=== PATIENT | male | born 1960 | race Caucasian/White ===

== ENCOUNTER 2025-08-12 13:50 | Outpatient (OUT) | payer OTHER, SELFPAY ==
--- OUTSIDE RECORDS SUMMARY | 2025-07-29 19:54 | XMS_ITS | Continuity of Care Document ---
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 Name Role Phone Denisha Leland LEHMAN Primary Care Provider Leland Denny DO Attending Provider [phone] [facility] Care Teams Patient Care Team Team Status: Active Member Role/Relationship Status Dates Leland Denny DO Primary Care Provider Active Visit Care Team Team Status: Inactive Member Role/Relationship Status Dates Leland Denny DO Primary Care Provider Active Sta rt: June 12, 2025 End: June 12Latricia Baumann ProviderActiveStart: June 12, 2025 End: June 12, 2025 Visit Care Team Team Status: Inactive Member Role/Relationship Status Dates Leland Denny DO Primary Care Provider Active Sta rt: July 02, 2025 End: July 02Latricia Baumann ProviderActiveStart: July 02, 2025 End: July 02, 2025 Visit Care Team Team Status: Inactive Member Role/Relationship Status Dates Leland Denny DO Primary Care Provider Active Sta rt: July 02, 2025 End: July 02Latricia Baumann ProviderActiveStart: July 02, 2025 End: July 02, 2025 Visit Care Team Team Status: Inactive Member Role/Relationship Status Dates Leland Denny DO Primary Care Provider Active Sta rt: July 29, 2025 End: July 29CAROLA Spaulding-BCAttending ProviderActiveStart: July 29, 2025 End: July 29, 2025 Chief Complaint and Reason for Visit Chief Complaint Admit Date 12.5 E78.5 June 12, 2025 7:15am wellness July 02, 2025 8:20am r97.20 n28.9 July 02, 2025 9:30am R97.20 July 29, 2025 8 :25am Reason for Visit Admit Date Abnormal kidney function July 02, 2025 8:20am Elevated PSA July 02, 2025 8:20am Hyperlipidemia July 02, 2025 8:20am Hypertension July 02, 2025 8:20am Wellness examination July 02 8:20am Allergies, Adverse Reactions, Alerts Allergen Type Severity Reaction Last Updated Verified Status No Known Allergies Allergy Unknown July 02, 2025 8:43amYesActive Social History Smoking Status Status Start Date End Date Date of Observa tion Never smoked tobacco (finding) November 07, 2023 12:38pm Observation Status Observation Response Date of Response Legal Sex [facility] (finding) [facility] [place] [facility] Family History Relationship Condition Age at Onset Recorded Date/T adrián Not Specified No pertinent family history Unknown maternal grandfatherDeceasedUnknownmaternal grandmotherDeceasedUnknownpaternal grandfatherDeceasedUnknownpaternal grandmotherDeceasedUnknownmotherDeceased UnknownfatherDiabetes mellitusUnknownDeceasedUnknown Problems Active Problems Problem Diagnosis/Recorded Date Onset Date Stat us Elevated PSA July 02, 2025 9:25am Unknown Active Screening for prostate cancer May 14, 2024 10:33am Unknown Active Wellness examination July 02, 2025 8:43am Unkno wn Active Hyperlipidemia May 14, 2024 10:33am Unknown A ctive Screening for colorectal cancer May 02, 2022 7:02am Unknown Active Abnormal kidney function June 28, 2024 11:26am Unknown Active Hypertension April 29, 2022 12:32pm Unknown Acti ve Vitamin D deficiency June 28, 2024 11:26am Unkn own Active Medications Medication Status Dose Units Route Directions Qty Days Refills S tart Date Stop Date End Date Reason(s) Instructions Adherence Olmesartan 20 mg tablet Discontinued 20 MG PO .CO MPLEX 90 1September 2023 2:40pmSeptember 2024 9:27amHypertension Essential (primary) hypertension1 tablet three times per weekLosartan 25 mg lavxrkHkjkwbuzfvyj95CEFMWzakrYllp 2021 12:00amSeptember 2023 11:27am Rosuvastatin 10 mg mtkjseViwhjqunakhq47FGMMAyxrrZlcp 2021 12:00amSeptember 2023 11:27amOlmesartan 20 mg xcgmglBbwmzjxyzdmg05RCTNPacqbcjxb 2023 12:00amSeptember 2023 9:51amRosuvastatin 20 mg tnvhojAmpcfubulsfm42YCGB DailySeptember 2023 12:00amSeptember 2023 9:51amOlmesartan 20 mg jpjzoeZrmzzdiamlsd63KMRMTszlh892Qrhrvwfro 2023 9:51amSeptember 2023 2:41pmRosuvastatin 20 mg doqtkyHgiwwsdfjsql12WIURFrsec112Fdqxdnvlt 2023 9:51amSeptember 2024 9:27amOlmesartan 20 mg iogtctSsneaj45PEWY.BQYAJDB650 July 02, 2025 9:27amHypertension Essential (primary) hypertension1 tablet three times per weekUnknownRosuvastatin 20 mg yoklbdMklrjj24HKBMWfaiu163Lbevjwkcs 2024 9:27amUnknown Immunizations Immunization Event Date Not Given Reason Dose Number Motion 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 Lot Number Reason(s) Given Vaccine Information Statement (VIS) Detail Administration Location COVID-19 mRNA, Comirnaty ([facility]) November 11, 2020 COVID-19 mRNA, Comirnaty ([facility])December 07OVI19 mRNA Comirnatveto ([facility])September 09OVI mRNA Comirnatveto ([facility])July 20, 2022 Influenza, seasonal, injectable, pfSeptember 2014Influenza Quadrivalent PF MDCKAugust [id number] Influenza [id number] [id number] Quadrivalent InfluenzaSeptember 2014Quadrivalent InfluenzaSeptember 2021Quadrivalent InfluenzaOctober , [id number] InfluenzaOctober , [id number] InfluenzaAugust [id number] Vaccine Recombinant, AdjuvantedAugust 2019Zoster Vaccine Recombinant, Adjuvanted September 14, 2020Trivalent Influenza VaccineOctober , 2015Trivalent Influenza VaccineOctober , 2016Trivalent Influenza VaccineOctober 2017 Trivalent Influenza VaccineAugust , 2018Trivalent Influenza VaccineAugust , 2019Trivalent Influenza VaccineAugust 2020 Procedures Procedure Date Performed Status MR prostate wo/w con July 29, 2025 8:30am a ctive Relevant Diagnostic Tests and/or Laboratory Data Laboratory Results Test Collection Date/Time Result Date/Time Result Interpretation Reference Range Result Comment Performing Site Urine Color July 02, 2025 9:01am July 02 9:05am yellow Urine AppearanceSeptember 2024 9:01amSeptember 2024 9:05amclearUrine Specific GravitySeptember 2024 9:01amSeptember 2024 9:05am<=1.005 Urine pHSeptember 2024 9:01amSeptember 2024 9:05am5.5Urine Leukocyte EsteraseSeptember 2024 9:01amSeptember 2024 9:05amnegativeUrine NitriteSeptember 2024 9:01amSeptember 2024 9:05amNegativeUrine ProteinSeptember 2024 9:01amSeptember 2024 9:05amnegativeUrine Glucose (UA)July 02, 2025 9:01amSeptember 2024 9:05amnegativeUrine KetonesSeptember 2024 9:01amSeptember 2024 9:05amnegativeUrine UrobilinogenSeptember 2024 9:01amSeptember 2024 9:05am0.2Urine BilirubinSeptember 2024 9:01amSeptember 2024 9:05amnegativeUrine Occult BloodSeptember 2024 9:01amSeptember 2024 9:05amnegative Corrected White Blood CountSeptember 2024 7:24amSeptember 2024 10:14am 5.4 10*3/uL4.1-10.5F[facility] [id number] [address] [facility] 50388Gywiujwxtxs WBC CountSeptember 2024 7:24amSeptember 2024 10:14am5.4 10*3/uL4.1-10.5FAs[facility] [id number] [address] [facility] 78425Ddd Blood CountSeptember 2024 7:24amSeptember 2024 10:14am4.74 10*6/uL3.90-5.60[facility] [id number] [address] [facility] 12162GaswkmvfabDonskoqhy 2024 7:24amSeptember 2024 10:14am 14.5 g/dL13.0-17.0[facility] [id number] [address] [facility] 59090ElwumvzaesHkyygcfrt 2024 7:24amSeptember 2024 10:14am 42.5 %38.8-50.0[facility] [id number] [address] [facility] 75424Iwzo Corpuscular VolumeSeptember 2024 7:24amSeptember 2024 10:14am89.6 fL83.5-101[facility] [id number] [address] [facility] 85414Mqhi Corpuscular HemoglobinSeptember 2024 7:24amSeptember 2024 10:14am30.5 pg27.5-35.2FAs[facility] [id number] [address] [facility] 53470Gvdg Corpuscular Hemoglobin ConcentSeptember 2024 7:24am Huong 2024 10:14am34.0 g/dL32.5-35.6FAs[facility]ula [facility] [id number] [address] [facility] 84338Biw Cell Distribution WidthSeptember 2024 7:24amSeptember 2024 10:14am13.0 %12.0-14.8[facility] [id number] [address] [facility] 43784Luqowzll CountSeptember 2024 7:24amSeptember 2024 10:54kp554 10*3/sF488-599PsjtucfyyCl[facility] [id number] [address] [facility] 36767Ggxl Platelet VolumeSept2024 7:24amSept2024 10:14am8.9 fL6.6-10.1FAs[facility] [id number] [address] [facility] 38900Bhfrnhusrcz (%) (Auto)June 12, 2025 7:24amSept2024 10:14am61.0 %.[facility] [id number] [address] [facility] 45834Ymylneqjuua (%) (Auto)June 12, 2025 7:24amSept2024 10:14am22.4 %.[facility] [id number] [address] [facility] 53857Idmawfnmu (%) (Auto)June 12, 2025 7:24amSept2024 10:14am11.1 %.[facility] [id number] [address] [facility] 82299Zngzlbzepnc (%) (Auto)June 12, 2025 7:24amSept2024 10:14am4.4 %.[facility] [id number] [address] [facility] 88224Mbqjiltqx (%) (Auto)June 12, 2025 7:24amSept2024 10:14am1.1 %.[facility] [id number] [address] [facility] 73543Gaxmplgzl RBC Relative Count (auto)June 12, 2025 7:24am June 12, 2025 10:14am0.1 /100{WBC}0-0.5FAs[facility] [id number] [address] 8927970Neutrophils # (Auto)June 12, 2025 7:24amSept2024 10:14am3.3 10*3/uL1.8-7.7FAshtabula [facility] [id number] [address] [facility] 67925Hlhuigashpg # (Auto)June 12, 2025 7:24amSeptember 2024 10:14am1.2 10*3/uL1.00-4.8[facility] [id number] [address] [facility] 79905Kbixucdvu # (Auto)June 12, 2025 7:24amSeptember 2024 10:14am0.6 10*3/uL0.0-0.8[facility] [id number] [address] [facility] 12332Ilxmeuzrstd # (Auto)June 12, 2025 7:24amSeptember 2024 10:14am0.2 10*3/uL0.0-0.45[facility] [id number] [address] [place] [address]2344Lncbgmysv # (Auto)June 12, 2025 7:24amSept2024 10:14am0.1 10*3/uL0.0-0.2FAsht[facility] [id number] [address] [facility] 55897Kfavjuz LevelSeptember 2024 7:amSept2024 11:56am97 mg/cA54-996TAE recommended reference rangeRandom Glucose Reference Range is dependent on time and content of last meal. Glucose of more than 200 mg/dL in a nonstressed, ambulatory subject supports the diagnosisof Diabetes Mellitus.[facility] [id number] [address] [facility] 94723Jlizpax LevelSeptember 2024 9:31amSeptember 2024 2:39pm87 mg/tO65-901CGY recommended reference rangeRandom Glucose Reference Range is dependent on time and content of last meal. Glucose of more than 200 mg/dL in a nonstressed, ambulatory subject supports the diagnosisof Diabetes Mellitus.[facility] [id number] [address] [facility] 23696Xviwd Urea NitrogenSeptember 2024 7:24amSept2024 11:56am21 mg/dL-[facility] [id number] [address] [facility] 29095Qejfd Urea NitrogenSeptember 2024 9:31amSeptember 2024 2:39pm21 mg/dL7-[facility] [id number] [address] [facility] 76060JuqhleoinmYckinascq 2024 7:24amSeptember 2024 11:56am 1.35 mg/dLAbove high normal0.70-1.30[facility] [id number] [address] [facility] 09587WcpacpugyjCxiejrylp 2024 9:31amSeptember 2024 2:39pm1.29 mg/dL0.70-1.30[facility] [id number] [address] [facility] 97867Gwfxrulwg GFR (CKD-EPI)June 12, 2025 7:24amSeptember 2024 11:56am58.630 mL/MinClinton Memorial Hospital Ctr [id number] [address] [facility] 55393Ksnntfysy GFR (CKD-EPI)July 02, 2025 9:31amSeptember 2024 2:39pm> 60.0 mL/MinClinton [facility] Hospital [facility] [id number] [address] [facility] 54670Rcdsem LevelSeptember 2024 7:24amSeptember 2024 11:45jm894 mmol/O206-835XzpfgzacnClinton Memorial Hospital [facility] [id number] [address] [facility] 26900Chvjmv LevelSeptember 2024 9:31amSeptember 2024 2:68ao090 mmol/M150-989BgsxbsjtkClinton Memorial Hospital [facility] [id number] [address] [facility] 73275Ycacpdrah LevelSeptember 2024 7:24amSeptember 2024 11:56am4.7 mmol/L3.5-5.1FAs[facility] [id number] [address] [facility] 27212Xkwzmryfv LevelSeptember 2024 9:31amSeptember 2024 2:39pm4.6 mmol/L3.5-5.1FAs[facility]abula [facility] [id number] [address] [facility] 30627Ufwfnwbn LevelSeptember 2024 7:24amSeptember 2024 11:87xx702 mmol/R63-736RtscikxvvClinton Memorial Hospital [facility] [id number] [address] [facility] 00880Baouqzyd LevelSeptember 2024 9:31amSeptember 2024 2:32uh891 mmol/I21-405ZcjohlykzClinton Memorial Hospital [facility] [id number] [address] [facility] 70368Lwlytk Dioxide LevelSeptember 2024 7:24amSeptember 2024 11:56am27.4 mmol/L21.0-31.0[facility] [id number] [address] [facility] 58673Ojbjva Dioxide LevelSeptember 2024 9:31amSeptember 2024 2:39pm30.8 mmol/L21.0-31.0[facility] [id number] [address] [facility] 81988Muwhq GapSeptember 2024 7:24amSeptember 2024 11:56am 12.3 mEq/L6.0-15.0[facility] [id number] [address] [facility] 64251Wtucp GapSeptember 2024 9:31amSeptember 2024 2:39pm 9.8 mEq/L6.0-15.0[facility] [id number] [address] [facility] 49139Inpzibq LevelSeptember 2024 7:24amSeptember 2024 11:56am10.2 mg/dL8.6-10.3FAs[facility]abula [facility] [id number] [address] [facility] 03691Smhbxny LevelSeptember 2024 9:31amSeptember 2024 2:39pm10.1 mg/dL8.6-10.3FAs[facility]abula [facility] [id number] [address] [facility] 08188Eavxy ProteinSeptember 2024 7:24amSeptember 2024 11:56am7.8 g/dL6.4-8.9[facility] [id number] [address] [facility] 01977Lygvo ProteinSeptember 2024 9:31amSeptember 2024 2:39pm8.0 g/dL6.4-8.9[facility] [id number] [address] [facility] 44646WbvrtjbDsfgkiprh 2024 7:24amSeptember 2024 11:56am4.8 g/dL3.5-5.7FAs[facility] [id number] [address] [facility] 02787EuhffilBhxwmimwe 2024 9:31amSeptember 2024 2:39pm 4.9 g/dL3.5-5.7FAs[facility] [id number] [address] [facility] 55437UwzhujcgPcoevjrrl 2024 7:24amSeptember 2024 11:56am 3.0 g/dLClinton Memorial Hospital [facility] [id number] [address] [facility] 03985MzfpxbrwFumpipiyv 2024 9:31amSeptember 2024 2:39pm 3.1 g/dLClinton Memorial Hospital [facility] [id number] [address] [facility] 25489Yvslgfh/Globulin RatioSeptember 2024 7:24amSeptember 2024 11:56am1.6FAshtabula [facility] [id number] [address] [facility] 81678Ncmgqtw/Globulin RatioSeptember 2024 9:31amSeptember 2024 2:39pm1.6FAshtabula [facility] [id number] [address] [facility] 49196Ifnre BilirubinSeptember 2024 7:24amSeptember 2024 11:56am0.6 mg/dL0.3-1.0[facility] [id number] [address] [facility] 75780Nzmph BilirubinSeptember 2024 9:31amSeptember 2024 2:39pm0.6 mg/dL0.3-1.0[facility] [id number] [address] [facility] 91929Pskbfqpqx Amino Transf (AST/SGOT)June 12, 2025 7:24am June 12, 2025 11:56am30 U/S36-03KybqwiapdClinton Memorial Hospital [facility]tr [id number] [address] [facility] 36448Ecoittywm Amino Transf (AST/SGOT)July 02, 2025 9:31am July 02, 2025 2:39pm34 U/I96-11WjrguykufClinton Memorial Hospital [facility]tr [id number] [address] [facility] 13435Apfzxfe Aminotransferase (ALT/SGPT)June 12, 2025 7:24am June 12, 2025 11:56am29 U/L7-52[facility] [id number] [address] [facility] 65967Ijmdlam Aminotransferase (ALT/SGPT)July 02, 2025 9:31am July 02, 2025 2:39pm37 U/L7-52[facility] [id number] [address] [facility] 23047Bcmhatsr PhosphataseSeptember 2024 7:24amSeptember 2024 11:56am82 U/O48-661JhlsaiwsmClinton Memorial Hospital [facility] [id number] [address] [facility] 95173Ocjzhkfb PhosphataseSeptember 2024 9:31amSeptember 2024 2:39pm87 U/A11-787TpfixwtewClinton Memorial Hospital [facility] [id number] [address] [facility] 44696Ivuectszoba LevelSeptember 2024 7:24amSeptember 2024 11:97ye118 mg/uE256-667Jplq less than 200 mg/dl low riskChol 201-239 mg/dl borderline riskChol 240 mg/dl and greater high riskClinton Memorial Hospital Ctr [id number] [address] [facility] 51894ZLQ CholesterolSeptember 2024 7:24amSeptember 2024 11:56am37 mg/uA91-33MHF CHOL ATP-III CLASSIFICATION Cardiovascular RiskHDL > or equal to 60 mg/dL LOWHDL < 40 mg/dL HIGHClinton Memorial Hospital Ctr [id number] [address] [facility] 91314Uueuvkdeldbxm LevelSeptember 2024 7:24amSeptember 2024 11:25jj880 mg/dLAbove high normal0-149TRIG ATP III CLASSIFICATIONTRIG less than 150 mg/dL NormalTRIG 150-199 mg/dL Borderline highTRIG 200-500 mg/dL High TRIG greater than 500 mg/dL Very highStandard traceable to the Center for Disease Conrtrol and Prevention (CDC) test method.[facility] [id number] [address] [facility] 77888AXX Cholesterol, CalculatedSeptember 2024 7:24amSeptember 2024 11:56am59 mg/dL0-100LDL ATP III CLASSIFICATIONLDL less than 100 mg/dL OptimalLDL 100-129 mg/dL Near or above safpwvlLFX331-389 mg/dL Borderline highLDL 160-189 mg/dL HighLDL greater than 189 mg/dL Very highCl[facility] [id number] [address] [facility] 27109IHVS CholesterolSeptember 2024 7:24amSeptember 2024 11:56am65 mg/dLClinton Memorial Hospital [facility] [id number] [address] [facility] 03956Eopjyjzupzv/HDL RatioSeptember 2024 7:24amSeptember 2024 11:56am4.4<5.0[facility] [id number] [address] [facility] 61916Ideerzky Specific Antigen ScreenSeptember 2024 7:24am June 12, 2025 11:29am4.740 ng/mLAbove high normal0.000-4.000Serial tumor marker results determined by assays using different manufacturers or methods may not be comparable.[facility] mule operator and method:[employer] DXI, CHEMILUMINESCENT IMMUNOASSAY.[facility] [id number] [address] [facility] 99686Vbizraul Specific Antigen TotalSeptember 2024 9:31am July 02, 2025 2:35pm4.270 ng/mLAbove high normal0.000-4.000Serial tumor marker results determined by assays using different manufacturers or methods may not be comparable.[facility] mule operator and method:[employer] DXI, CHEMILUMINESCENT IMMUNOASSAY.[facility] [id number] [address] [facility] 42493Emam Prostate Specific AntigenSeptember 2024 9:31am July 02, 2025 2:33pm0.700 ng/mLSelect [facility] [id number] [address] [facility] 60857Dmvalgm Free Prostate Specific AgSeptember 2024 9:31am July 02, 2025 2:35pm16.3 %Based on the work of Daquan et al.ROSALINDA. 27919):1542:47.1998 the percent free PSA may be used to determine the relative risk of prostate cancer in individual men.The percent probability of prostate cancer by patient age for men with non-suspicious SOY results and total PSa between 4 and 10 ng/ml is as follows:% Free PSA 50 - 64 yrs. 65 - 75 yrs. 0 - 10 56% 55% 10 - 15 24% 35% 15 - 20 17% 23% 20- 25 10% 20% >25 5% 9%[facility] [id number] [address] [facility] 99511Qdlixsz Stimulating Hormone 3rd GenSeptember 2024 7:24am June 12, 2025 11:18am2.59 u[iU]/mL0.45-5.33[facility] [id number] [address] [place] [address] 86843Wkszlgdb Creatinine Clearance (ChemSeptember 2024 7:24am June 12, 2025 11:56amN/[facility] [id number] [address] [place] [address] 37390Xfxbqufu Creatinine Clearance (ChemSeptember 2024 9:31am July 02, 2025 2:39pmN/[facility] [id number] [address] [place] [address] 83605Hbwbfkh CreatinineOctober 2024 8:38amOctober 2024 8:39am1.4 mg/dLAbove high normal0.6-1.3ER/ESD physician is notified/shown all ISTAT results.Critical values may be confirmed by laboratorytesting ifdeemed necessary by ER attending doctor.[facility] [id number] [address] [facility] 86689Iaxjfvr Estimated GFR (eGFR)July 29, 2025 8:38amOctober 2024 8:39am56.126[facility] [id number] [address] [place] [id number] Vital Signs Vital Reading Result Reference Range Collection Date/Time Height 73 [in_i] July 02, 2025 8:71srLckxzi31.99 kgSeptember 2024 8:51amHeart Rate65 /huf88-922Auvvxoaml 2024 8:51amRespiratory rate18 /jzt64-13Mafzqdsly 2024 8:51amOxygen saturation by Pulse eqiurzdg64 %95-100Sept2024 8:51amBP Nkojxloc728 mm[Hg]100-140Sept2024 8:51amBP Exnefcxvm96 mm[Hg]60-100September 2024 8:51amBMI (Body Mass Index)25.6 kg/z6Mzvwypyel2024 8:23nnYklfje40 [in_i]July 29, 2025 8:98grBcnxtl98.45 kgOctober 2024 8:32am Advance Directives Advance Directive Response Recorded Date/ Time Advance Directives Yes November 07, 2023 1:38pm Insurance Providers Guarantor Brian Betts Address [address] [place] [address]Csclykk Info.Home Phone: Payer Group Member ID Coverage Type Subscriber Relationship to Subscriber Effective Date Expiration Date [facility] Id: [id number] J Kaman Id: [id number] [address] [place] [address] Home Phone: Email: [email or web address] Id: [id number] J Kaman Id: [id number] [address] [place] [address] Home Phone: Email: [email or web address] Encounter Location(s) Arrival/Admit Date Discharge/Departure Date Discharge/Departure Disposition Provider(s) Departed Clinical -Lab [facility] June 12, 2025 7:15am June 12, 2025 7:16am Discharged to home care or self care (routine discharge) Mayi Holley DO Departed Physician/ Provider Office Visit -[facility] July 02, 2025 8:20am July 02, 2025 9:29am Discharged to home care or self care (routine discharge) Mayi Holley DO Departed Clinical -[facility] July 02, 2025 9:30am July 02, 2025 9:31am Discharged to home care or self care (routine discharge) Mayi Holley DO Departed Clinical -[facility] July 29, 2025 8:25am July 29, 2025 8:26am Discharged to home care or self care (routine discharge) CAROLA Lara-BC Recent Diagnosis Onset Date Admit Date Abnormal kidney function Unknown er 2024 8:20am Elevated PSA Unknown July 02, 2025 8:20am Hyperlipidemia Unknown July 02, 2025 8:20am Hypertension Unknown July 02, 2025 8:20am Wellness examination Unknown June 102024 8:20am Assessments Author Alesia Hsu [facility] 2024 11:24amSooner if needed, the ER if concerns,The above note written by Alesia Hsu LPN acting as human recorder, note dictated by Dr. Leland Denny Plan of Treatment Author Alesia Hsu [facility] 2024 11:22am Personalized health advice was given to the beneficiary to health education of preventative counseling services or programs aimed at reducing identified risk factors and improving self-management or community-based lifestyle interventions to reduce health risks and promote self-management and wellness, including physical activity and nutrition. A written plan for screenings was discussed, flu vaccination, routine lab studies, eye exams, as well as risk factors for other medical problems. Blood work reviewed with the patient. No signs of anemia or leukemia noted. Liver enzymes and electrolytes are stable. Cholesterol overall is satisfactory. Encouraged patient monitor diet, increase water intake, and stay active. Blood pressure appears to be controlled with the Olmesartan, encouraged he continue as directed. PSA is elevated at 4.740 and has been trending up over the last couple of years. He does not have a known family history of Prostate CA, denies any urinary complaints today, and no mention of prostatomegaly noted on CT abd/pelvis from 2017. In house UA is unremarkable. I suggest repeating this with a PSA total and free and depending on these results we will either recheck in three months or refer to Urology. Patient is in agreement. Order provided. Creatinine is elevated at 1.35 with a GFR of 58, I did suggest repeating a CMP and encouraging adequate water intake. Patient is in agreement, order provided. Future Tests Future scheduled test information is unavailable Pending Tests Pending diagnostic test information is unavailable Future Visits Future appointment information is unavailable Future Procedures Future procedure information is unavailable Future Medications Future medication information is unavailable Patient Instructions Patient instructions are unavailable
--- OUTSIDE RECORDS SUMMARY | 2025-08-12 13:53 | XMS_ITS | Continuity of Care Document ---
Author Organization [facility] Address [address] [place] [address] Phone Care Team Providers Care Setter [employer] Name Role Phone Denisha Leland LEHMAN Primary Care Provider [phone] Leland Denny DO Attending Provider Sabi No Attending Provider Care Teams Patient Care Team Team Status: Active Member Role/Relationship Status Dates Leland Denny DO Primary Care Provider Active Visit Care Team Team Status: Inactive Member Role/Relationship Status Dates Leland Denny DO Primary Care Provider Active Sta rt: June 12, 2025 End: June 12theodora Denny DOAttnetta ProviderActiveStart: June 12, 2025 End: June 12, 2025 Visit Care Team Team Status: Inactive Member Role/Relationship Status Dates Leland Denny DO Primary Care Provider Active Sta rt: July 02, 2025 End: July 02theodora Denny DOAttending ProviderActiveStart: July 02, 2025 End: July 02, 2025 Visit Care Team Team Status: Inactive Member Role/Relationship Status Dates Leland Denny DO Primary Care Provider Active Sta rt: July 02, 2025 End: July 02theodora Denny DOAttending ProviderActiveStart: July 02, 2025 End: July 02, 2025 Visit Care Team Team Status: Active Member Role/Relationship Status Dates Leland Denny DO Primary Care Provider Active Sta rt: July 29, 2025 SANYA Larattending ProviderActiveStart: July 29, 2025 Chief Complaint and Reason [...] Legal Sex [facility] (finding[facility] Family [facility] Relationship Condition Age at [...] tablet three times per weekLosartan 25 mg uhzftcGxkgrwnzgvtx82RATUYvllmWflz 2021 12:00amSeptember 2023 11:27am Rosuvastatin 10 mg xkabewGvkzhtrvkbao57PDPBInqckTczc 2021 12:00amSeptember 2023 11:27amOlmesartan 20 mg rvmyhcQmwezwfmfnwc71QQOEWgwqdppsa 2023 12:00amSeptember 2023 9:51amRosuvastatin 20 mg eikhyfTwqafeamjrec21PCXP DailySeptember 2023 12:00amSeptember 2023 9:51amOlmesartan 20 mg sxrckuDaymnvktenia52FMDFYpsgm926Cpfcoegvh 2023 9:51amSeptember 2023 2:41pmRosuvastatin 20 mg gsjzwuCxsdyspkyxfp36YIMFTnjme124Kwqnvhhed 2023 9:51amSeptember 2024 9:27amOlmesartan 20 mg duxcrgAkvgcf22TITT.LFBWPZJ761 July 02, 2025 9:27amHypertension Essential (primary) hypertension1 tablet three times per weekUnknownRosuvastatin 20 mg vkvyzkEvexds27OPAFGhyvy433Inkrfytfz 24th, 2025 9:27amUnknown Immunizations Immunization Event Date Not Given Reason 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 Number Reason(s) Given Vaccine Information Statement (VIS) Detail Administration Location COVID-19 mRNA, Comirnaty (Avvenu) November 11, 2020 COVID-19 mRNA, Comirnaty (Avvenu)December 07OVID-19 mRNA, Comirnaty (Avvenu)September 09OVI mRNA, Comirnaty (Avvenu)July 20, 2022 Influenza, seasonal, injectable, pfSeptember , 2014Influenza Quadrivalent PF MDCKAugust [id number] Influenza C1X0Qjjclvm , [id number] Quadrivalent InfluenzaSeptember 2014Quadrivalent InfluenzaSeptember 2021Quadrivalent InfluenzaOctober [id number] InfluenzaOctober , [id number] InfluenzaAugust , 0507M10I5Pdqmnk Vaccine Recombinant, AdjuvantedAugust 2019Zoster Vaccine Recombinant, Adjuvanted [...] Blood CountSeptember 2024 7:24amSeptember 2024 10:14am 5.4 10*3/uL4.1-10.5[facility] [id number] [address] [place] [address] 98260Csklwthsbge WBC CountSeptember 2024 7:24amSeptember 2024 10:14am5.4 10*3/uL4.1-10.5[facility] [id number] [address] [facility] [id number] Blood CountSeptember 2024 7:24amSeptember 2024 10:14am4.74 10*6/uL3.90-5.60[facility] [id number] [address] [place] [address] 98297VmqqoktvwhNdtukbyjn 2024 7:24amSeptember 2024 10:14am 14.5 g/dL13.0-17.0[facility] [id number] [address] [place] [address] 35309KxgcuapqdeFbytdhhow 2024 7:24amSeptember 2024 10:14am 42.5 %38.8-50.0[facility] [id number] [address] [place] [address] 72034Tnya Corpuscular VolumeSeptember 2024 7:24amSeptember 2024 10:14am89.6 fL83.5-101[facility] [id number] [address] [place] [address] 65027Tndr Corpuscular HemoglobinSeptember 2024 7:24amSeptember 2024 10:14am30.5 pg27.5-35.2FE[facility] [id number] [address] [place] [address] 68921Qnsm Corpuscular Hemoglobin ConcentSeptember 2024 7:24am Huong 2024 10:14am34.0 g/dL32.5-35.6[facility] [id number] [address] [facility] 86183Jch Cell Distribution WidthSeptember 2024 7:24amSeptember 2024 10:14am13.0 %12.0-14.8[facility] [id number] [address] [facility] 73959Zyjbfrvc CountSeptember 2024 7:24amSeptember 2024 10:82hb358 10*3/hS061-060DgckyebyyNationwide Children'S Hospital [facility] [id number] [address] [facility] 68977Dxpj Platelet VolumeSeptember 2024 7:24amSept2024 10:14am8.9 fL6.6-10.1FE[facility] [id number] [address] [facility] [id number] (%) (Auto)June 12, 2025 7:24amSept2024 10:14am61.0 %.[facility] [id number] [address] [facility] [id number] (%) (Auto)June 12, 2025 7:24amSept2024 10:14am22.4 %.[facility] [id number] [address] [facility] 25584Gogyiuzlg (%) (Auto)June 12, 2025 7:24amSept2024 10:14am11.1 %.[facility] [id number] [address] [facility] [id number] (%) (Auto)June 12, 2025 7:24amSept2024 10:14am4.4 %.[facility] [id number] [address] [facility] 37552Nfovyboly (%) (Auto)June 12, 2025 7:24amSept2024 10:14am1.1 %.[facility] [id number] [address] [facility] 29008Hngogdpbg RBC Relative Count (auto)June 12, 2025 7:24am June 12, 2025 10:14am0.1 /100{WBC}0-0.5[facility] [id number] [address] [facility] 12930Siqwwlhlrdb # (Auto)June 12, 2025 7:24amSept2024 10:14am3.3 10*3/uL1.8-7.7[facility] [id number] [address] [facility] [id number] # (Auto)June 12, 2025 7:24amSeptember 2024 10:14am1.2 10*3/uL1.00-4.8[facility] [id number] [address] [facility] 42946Jblnakbhd # (Auto)June 12, 2025 7:24amSeptember 2024 10:14am0.6 10*3/uL0.0-0.8[facility] [id number] [address] [facility] 46447Jyixjiwknxw # (Auto)June 12, 2025 7:24amSeptember 2024 10:14am0.2 10*3/uL0.0-0.45[facility] [id number] [address] [place] [address] 64447Lrpwyrddi # (Auto)June 12, 2025 7:24amSeptember 2024 10:14am0.1 10*3/uL0.0-0.2[facility] [id number] [address] [facility] 24430Cusubuj LevelSeptember 2024 7:24amSeptember 2024 11:56am97 mg/uH10-408JYF recommended reference rangeRandom Glucose Reference Range is dependent on time and content of last meal. Glucose of more than 200 mg/dL in a nonstressed, ambulatory subject supports the diagnosisof Diabetes Mellitus.[facility] [id number] [address] [facility] 91981Dmlfydn LevelSeptember 2024 9:31amSeptember 2024 2:39pm87 mg/vO79-643YFE recommended reference rangeRandom Glucose Reference Range is dependent on time and content of last meal. Glucose of more than 200 mg/dL in a nonstressed, ambulatory subject supports the diagnosisof Diabetes Mellitus.[facility] [id number] [address] [facility] 55339Qkjzu Urea NitrogenSeptember 2024 7:24amSeptember 2024 11:56am21 mg/dL7-25[facility] [id number] [address] [facility] 28189Snsef Urea NitrogenSeptember 2024 9:31amSeptember 2024 2:39pm21 mg/dL7-[facility] [id number] [address] [facility] 39611HebapbdhwdSjfeazapm 2024 7:24amSeptember 2024 11:56am 1.35 mg/dLAbove high normal0.70-1.30[facility] [id number] [address] [facility] 86080TwsabrodarCsxunszwh 2024 9:31amSeptember 2024 2:39pm1.29 mg/dL0.70-1.30[facility] [id number] [address] [facility] 26630Mwshijobv GFR (CKD-EPI)June 12, 2025 7:24amSeptember 2024 11:56am58.630 mL/MinNationwide Children'S Hospital Ctr [id number] [address] [facility] 86360Tzcmkpsrk GFR (CKD-EPI)July 02, 2025 9:31amSeptember 2024 2:39pm> 60.0 mL/MinNationwide Children'S Hospital [facility]tr [id number] [address] [facility] 55836Mwjhen LevelSeptember 2024 7:24amSeptember 2024 11:53ie380 mmol/W223-563NlypylvpeNationwide Children'S Hospital Ctr [id number] [address] [facility] 92966Rsrwrm LevelSeptember 2024 9:31amSeptember 2024 2:91oo982 mmol/Z250-870UksqozdeyNationwide Children'S Hospital [facility]tr [id number] [address] [facility] 13286Wtgmjsjei LevelSeptember 2024 7:24amSeptember 2024 11:56am4.7 mmol/L3.5-5.1[facility] [id number] [address] [facility] 61595Ysbjoeajy LevelSeptember 2024 9:31amSeptember 2024 2:39pm4.6 mmol/L3.5-5.1[facility] [id number] [address] [facility] 67843Ftghzklk LevelSeptember 2024 7:24amSeptember 2024 11:35ru467 mmol/V58-281MjsrlhbkoNationwide Children'S Hospital Ctr [id number] [address] [facility] 43583Gupubede LevelSeptember 2024 9:31amSeptember 2024 2:66rf842 mmol/X11-630FzaeibxteNationwide Children'S Hospital Ctr [id number] [address] [facility] 56358Engynj Dioxide LevelSeptember 2024 7:24amSeptember 2024 11:56am27.4 mmol/L21.0-31.0[facility] [id number] [address] [facility] 47921Rqwzqr Dioxide LevelSeptember 2024 9:31amSeptember 2024 2:39pm30.8 mmol/L21.0-31.0[facility] [id number] [address] [facility] 84122Ghthc GapSeptember 2024 7:24amSeptember 2024 11:56am 12.3 mEq/L6.0-15.0[facility] [id number] [address] [facility] 60355Urvks GapSeptember 2024 9:31amSeptember 2024 2:39pm 9.8 mEq/L6.0-15.0[facility] [id number] [address] [facility] 47865Mpcaebk LevelSeptember 2024 7:24amSeptember 2024 11:56am10.2 mg/dL8.6-10.3[facility] [id number] [address] [facility] 47875Mlipval LevelSeptember 2024 9:31amSeptember 2024 2:39pm10.1 mg/dL8.6-10.3[facility] [id number] [address] [facility] [id number] ProteinSeptember 2024 7:24amSeptember 2024 11:56am7.8 g/dL6.4-8.9[facility] [id number] [address] [facility] 69222Sfytj ProteinSeptember 2024 9:31amSeptember 2024 2:39pm8.0 g/dL6.4-8.9[facility] [id number] [address] [facility] 24440WfcvcuaOropchlmw 2024 7:24amSeptember 2024 11:56am4.8 g/dL3.5-5.7[facility] [id number] [address] [facility] [id number] 2024 9:31amSeptember 2024 2:39pm 4.9 g/dL3.5-5.7[facility] [id number] [address] [facility] 10240BphpnvpsVblpvpmzi 2024 7:24amSeptember 2024 11:56am 3.0 g/dLNationwide Children'S Hospital [facility]tr [id number] [address] [facility] 60246IscnwnahFgirqzdaq 2024 9:31amSeptember 2024 2:39pm 3.1 g/dLNationwide Children'S Hospital [facility]tr [id number] [address] [facility] 40563Dijnbth/Globulin RatioSeptember 2024 7:24amSeptember 2024 11:56am1.6[facility] [id number] [address] [facility] 17211Kbzhtii/Globulin RatioSeptember 2024 9:31amSeptember 2024 2:39pm1.6[facility] [id number] [address] [facility] 51613Zxqrc BilirubinSeptember 2024 7:24amSeptember 2024 11:56am0.6 mg/dL0.3-1.0[facility] [id number] [address] [facility] 09698Cfiuz BilirubinSeptember 2024 9:31amSeptember 2024 2:39pm0.6 mg/dL0.3-1.0[facility] [id number] [address] [facility] 33275Uwcjuqnjd Amino Transf (AST/SGOT)June 12, 2025 7:24am June 12, 2025 11:56am30 U/O13-85LmezfqncfNationwide Children'S Hospital Ctr [id number] [address] [facility] 21146Uebadfasn Amino Transf (AST/SGOT)July 02, 2025 9:31am July 02, 2025 2:39pm34 U/I46-31DwdapewhfNationwide Children'S Hospital Ctr [id number] [address] [facility] 39306Icsvper Aminotransferase (ALT/SGPT)June 12, 2025 7:24am June 12, 2025 11:56am29 U/L7-52[facility] [id number] [address] [facility] 17389Ycgeool Aminotransferase (ALT/SGPT)July 02, 2025 9:31am July 02, 2025 2:39pm37 U/L7-52[facility] [id number] [address] [facility] 33312Egrtqvlk PhosphataseSeptember 2024 7:24amSeptember 2024 11:56am82 U/X34-008MjgaglkciNationwide Children'S Hospital Ctr [id number] [address] [facility] 34600Ekumqayo PhosphataseSeptember 2024 9:31amSeptember 2024 2:39pm87 U/P77-173NlrgcajbnNationwide Children'S Hospital Ctr [id number] [address] [facility] 85689Oysukeizpel LevelSeptember 2024 7:24amSeptember 2024 11:03xl298 mg/tB179-670Idoa less than 200 mg/dl low riskChol 201-239 mg/dl borderline riskChol 240 mg/dl and greater high riskNationwide Children'S Hospital Ctr [id number] [address] [facility] 61879VTT CholesterolSeptember 2024 7:24amSeptember 2024 11:56am37 mg/nV57-26QDZ CHOL ATP-III CLASSIFICATION Cardiovascular RiskHDL > or equal to 60 mg/dL LOWHDL < 40 mg/dL HIGHNationwide Children'S Hospital Ctr [id number] [address] [facility] 94661Zcgexrtfdsxer LevelSeptember 2024 7:24amSeptember 2024 11:56ui508 mg/dLAbove high normal0-149TRIG ATP III CLASSIFICATIONTRIG less than 150 mg/dL NormalTRIG 150-199 mg/dL Borderline highTRIG 200-500 mg/dL High TRIG greater than 500 mg/dL Very highStandard traceable to the Center for Disease Conrtrol and Prevention (CDC) test method.[facility] [id number] [address] [facility] [id number] Cholesterol, CalculatedSeptember 2024 7:24amSeptember 2024 11:56am59 mg/dL0-100LDL ATP III CLASSIFICATIONLDL less than 100 mg/dL OptimalLDL 100-129 mg/dL Near or above pjlsapwLGR202-467 mg/dL Borderline highLDL 160-189 mg/dL HighLDL greater than 189 mg/dL Very highNationwide Children'S Hospital [facility]tr [id number] [address] [facility] [id number] CholesterolSeptember 2024 7:24amSeptember 2024 11:56am65 mg/dLNationwide Children'S Hospital [facility] [id number] [address] [facility] [id number]/HDL RatioSeptember 2024 7:24amSeptember 2024 11:56am4.4<5.0[facility] [id number] [address] [facility] 31280Txxfcrpo Specific Antigen ScreenSeptember 2024 7:24June 12, 2025 11:29am4.740 ng/mLAbove high normal0.000-4.000Serial tumor marker results determined by assays using different manufacturers or methods may not be comparable.[facility] Laboratory management information systems director and method:N[employer] DXI, CHEMILUMINESCENT IMMUNOASSAY.[facility] [id number] [address] [facility] 44637Xpiupwiz Specific Antigen TotalSeptember 2024 9:31am July 02, 2025 2:35pm4.270 ng/mLAbove high normal0.000-4.000Serial tumor marker results determined by assays using different manufacturers or methods may not be comparable.[facility] Laboratory management information systems director and method:Silicon ClocksEL DXI, CHEMILUMINESCENT IMMUNOASSAY.[facility] [id number] [address] [facility] 99684Lhjk Prostate Specific AntigenSeptember 2024 9:31am July 02, 2025 2:33pm0.700 ng/mLNationwide Children'S [facility] [id number] [address] [facility] [id number] Free Prostate Specific AgSeptember 2024 9:31am July [...] 23% 20- 25 10% 20% >25 5% 9%[facility] [id number] [address] [facility] 25839Modqyft Stimulating Hormone 3rd GenSeptember 2024 7:24am June 12, 2025 11:18am2.59 u[iU]/mL0.45-5.33[facility] [id number] [address] [facility] [id number] Creatinine Clearance (ChemSeptember 2024 7:24am June 12, 2025 11:56amN/[facility] [id number] [address] [facility] [id number] Creatinine Clearance (ChemSeptember 2024 9:31am July 02, 2025 2:39pmN/[facility] [id number] [address] [facility] 14006Nrwxems CreatinineOctober 2024 8:38amOctober 2024 8:39am1.4 mg/dLAbove high normal0.6-1.3ER/ESD physician is notified/shown all ISTAT results.Critical values may be confirmed by laboratorytesting ifdeemed necessary by ER attending doctor.[facility] [id number] [address] [facility] 82072Kbsmsib Estimated GFR (eGFR)July 29, 2025 8:38amOctober 2024 8:39am56.126[facility] [id number] [address] [place], [place] [address] Vital Signs Vital Reading Result Reference Range Collection Date/Time Height 73 [in_i] July 02, 2025 8:49hjAixcus78.99 kgSeptember 2024 8:51amHeart Rate65 /ebt81-350Fybksrjyf 2024 8:51amRespiratory rate18 /vzg17-75Rpymsuchv 2024 8:51amOxygen saturation by Pulse odsnxmha44 %95-100September 2024 8:51amBP Csjjfpub987 mm[Hg]100-140September 2024 8:51amBP Udehvpage25 mm[Hg]60-100September 2024 8:51amBMI (Body Mass Index)25.6 kg/b6Mfqedpvjp2024 8:00akUhhzsb66 [in_i]July 29, 2025 8:13nnDfdera50.45 kgOctober 2024 8:32am Advance Directives Advance Directive Response Recorded Date/ Time Advance Directives Yes November 07, 2023 1:38pm Insurance Providers Guarantor Brian Betts Address [address] [facility] [address] Info.Home Phone: Payer Group Member ID Coverage Type Subscriber Relationship to Subscriber Effective Date Expiration Date [facility] Id: [id number] J Kaman Id: [id number] [address] [place] [address] Home Phone: Email: [email or web address] Company Id: [id number] J Kaman Id: [id number] [address] [place] [address] Home Phone: Email: [email or web address] [email or web address] Encounter Location(s) Arrival/Admit Date Discharge/Departure Date Discharge/Departure Disposition Provider(s) Departed Clinical -Lab [facility] June 12, 2025 7:15am June 12, 2025 7:16am Discharged to home care or self care (routine discharge) Mayi Holley DO Departed Physician/ Provider Office Visit -[facility] July 02, 2025 8:20am July 02, 2025 9:29am Discharged to home care or self care (routine discharge) Mayi Holley DO Departed Clinical -Lab [place] July 02, 2025 9:30am July 02, 2025 9:31am Discharged to home care or self care (routine discharge) Mayi Holley DO Registered Clinical -MRI [facility] July 29 8:25am SUSSY Lara Recent Diagnosis Onset Date Admit Date Abnormal kidney function Unknown er 2024 8:20am Elevated PSA Unknown July 02, 2025 8:20am Hyperlipidemia Unknown July 02, 2025 8:20am Hypertension Unknown July 02, 2025 8:20am Wellness examination Unknown June 102024 8:20am Assessments Author Alesia Hsu [facility] 2024 11:24amSooner if needed, the ER if concerns,The above note written by Alesia Hsu LPN acting as human recorder, note dictated by Dr. Leland Denny Plan of Treatment Author Alesia Hsu [facility] 2024 11:22am Personalized health advice was given [...]
--- OUTSIDE RECORDS SUMMARY | 2025-08-12 13:53 | XMS_ITS | Clinical Summary ---
Author Organization [facility] Address [address], [address] [place] [address] Care Team Providers Care Shell Coremaker Name Role Phone Leland Denny DO Primary Care Provider [phone] Social History Tobacco UseTypesPacks/DayYears UsedDateSmoking Tobacco: Never AssessedSex and Gender InformationValueDate RecordedSex Assigned at BirthNot on fileLegal Sex Male11/18/2012 7:07 PM ESTGender IdentityNot on fileSexual OrientationNot on file Plan of Treatment Health MaintenanceDue DateLast DoneCommentsDepression Levtjl1511/22/1972HIV screen 1975Hepatitis C nzoibv6311/22/1978DTaP/Tdap/Td vaccine (1 - Tdap)1979 Rwczxsfctcd79/14/2006Colorectal Cancer Rcmksn3911/22/2005FIT/FOBT: Average risk 2005Fecal-DNA (Cologuard): Average risk2005Sigmoidoscopy/CT wfzuhepqzpfx61/14/2006Pneumococcal 50+ years Vaccine (1 of 1 - PCV)2010Flu vaccine (#1)509/, 05/31/2021, 06/03/2020, Additional history existsCOVID-19 Vaccine (2 - 2024- season)/2921Vqcvtl47/04/2029 4Respiratory Syncytial Virus (RSV) or age 60 yrs+ (1 - 1-dose 75+ series)2035Shingles xvrjhqnQkbddbylp22/07/2020, 06/03/2020, 05/16/2020 Hepatitis A vaccineAged OutNo longer eligible based on patient's age to complete this topicHepatitis B vaccineAged OutNo longer eligible based on patient's age to complete this topicHib vaccineAged OutNo longer eligible based on patient's age to complete this topicMeningococcal (ACWY) vaccineAged OutNo longer eligible based on patient's age to complete this topicMeningococcal B vaccineAged OutNo longer eligible based on patient's age to complete this topicPolio vaccineAged OutNo longer eligible based on patient's age to complete this topic Procedures Procedure NamePriorityDate/TimeAssociated DiagnosisCommentsLIPID PANELRoutine 06/12/2024 7:37 AM EDT from Last 3 Months or Most Recently Relevant to Health Maintenance Results * (ABNORMAL) Lipid Panel (06/12/2024 7:37 AM EDT)ComponentValueRef RangeTest MethodAnalysis TimePerformed AtPathologist SignatureCholesterol, Aolxh8254 - 199 mg/dL06/12/2024 10:31 AM [facility]:ATP III Cholesterol classification is Desirable.Sfvotwntctcuh213(H)0 - 150 mg/dL 06/12/2024 10:31 AM [facility]Comment:ATP III Triglycerides Classification is High.HDL34(L)40 - 59 mg/dL06/12/2024 10:31 AM [facility]: ATP III HDL Cholestrol Classification is low. Expected Values: Males: >55 = No Risk ?35-55 = Moderate Risk <35 = High Risk Females: >65 = No Risk ?45-65 = Moderate Risk <45 = High Risk NCEP Guidelines: ??Third Report February 2001 >59 = negative risk factor for CHD <40 = major risk factor for CHD LDL Bmetqrpadqm603 - 129 mg/dL06/12/2024 10:31 AM [facility] LABComment:ATP III LDL Classification is Optimal.Specimen (Source) Anatomical Location / LateralityCollection Method / VolumeCollection Time Received Time06/12/2024 7:37 AM EDT06/12/2024 9:22 AM EDT Narrative [facility] - 06/12/2024 10:31 AM EDT CALL doctor [id number] tel. [phone], FX CALL ??doctor ??[id number] tel. [phone], FX Authorizing ProviderResult TypeResult StatusLeland Denny DOCHEMISTRY ORDERABLES Final ResultPerforming OrganizationAddressCity/State/ZIP CodePhone Number [facility] [address] [place] [address], [facility] [phone] from Last 3 Months or Most Recently Relevant to Health Maintenance Insurance Care Teams Team MemberRelationshipSpecialtyStart DateEnd Date Leland Denny, [facility] Rodriguezterri [place] [facility] [address] [place] [id number] [facility] - [facility]
== END 2025-08-12 13:51 | disposition home or self-care (01) ==
LOC: PST 13:51
PROVIDERS: Visit Provider Urology
DX: Z01.818 Encounter for other preprocedural examination (principal); R97.20 Elevated prostate specific antigen [PSA]

== ENCOUNTER 2025-08-19 07:33 | Day surgery (SDC) | payer OTHER, SELFPAY ==
--- OUTSIDE RECORDS SUMMARY | 2025-08-19 07:38 | XMS_ITS | Clinical Summary ---
Author Organization [facility] Address [address], [address] [place] [address] Care Team Providers Care Silk Screener Name Role Phone Leland Denny DO Primary Care Provider [phone] Social History Tobacco UseTypesPacks/DayYears UsedDateSmoking Tobacco: Never AssessedSex and Gender InformationValueDate RecordedSex Assigned at BirthNot on fileLegal Sex Male11/18/2012 7:07 PM ESTGender IdentityNot on fileSexual OrientationNot on file Plan of Treatment Health MaintenanceDue DateLast DoneCommentsDepression Bpnuhv8311/22/1972HIV screen 1975Hepatitis C plusri8511/22/1978DTaP/Tdap/Td vaccine (1 - Tdap)1979 Sxfhynjcmci69/14/2006Colorectal Cancer Dmdbiw8411/22/2005FIT/FOBT: Average risk 2005Fecal-DNA (Cologuard): Average risk2005Sigmoidoscopy/CT /14/2006Pneumococcal 50+ years Vaccine (1 of 1 - PCV)2010Flu vaccine (#1)509/, 05/31/2021, 06/03/2020, Additional history existsCOVID-19 Vaccine (2 - 2024- season)/1424Emgpdm16/04/2029 4Respiratory Syncytial Virus (RSV) or age 60 yrs+ (1 - 1-dose 75+ series)2035Shingles qnkbpupQjaboujbe68/07/2020, 06/03/2020, 05/16/2020 Hepatitis A vaccineAged OutNo longer [...] AM EDT)ComponentValueRef RangeTest MethodAnalysis TimePerformed AtPathologist SignatureCholesterol, Ywgjd7351 - 199 mg/dL06/12/2024 10:31 AM [facility]ATP III Cholesterol classification is Desirable.Obfejqvorppgv703(H)0 - 150 mg/dL 06/12/2024 10:31 AM [facility]:ATP III Triglycerides Classification is High.HDL34(L)40 - 59 mg/dL06/12/2024 10:31 AM [facility]: ATP III HDL Cholestrol Classification is low. Expected Values: Males: >55 = No Risk ?35-55 = Moderate Risk <35 = High Risk Females: >65 = No Risk ?45-65 = Moderate Risk <45 = High Risk NCEP Guidelines: ??Third Report February 2001 >59 = negative risk factor for CHD <40 = major risk factor for CHD LDL Mtuxzjkqdxz127 - 129 mg/dL06/12/2024 10:31 AM [facility]:ATP III LDL Classification is Optimal.Specimen (Source) Anatomical Location / LateralityCollection Method / VolumeCollection Time Received Time06/12/2024 7:37 AM EDT06/12/2024 9:22 AM EDT Narrative [facility] - 06/12/2024 10:31 AM EDT CALL doctor [id number] tel. [phone], FX CALL ??doctor ??[id number] tel. [phone], FX Authorizing ProviderResult TypeResult StatusLeland Denny DOCHEMISTRY ORDERABLES Final ResultPerforming OrganizationAddressCity/State/ZIP CodePhone Number [facility] [address] [place] [address], [facility] [phone] from Last 3 Months or Most Recently Relevant to Health Maintenance Insurance Care Teams Team MemberRelationshipSpecialtyStart DateEnd Date Leland Denny, [facility] [facility] [address] [place] [id number] [facility]
[2025-08-19 07:44] VITALS: BP 148/96; PULSE 68; TEMP 36.4; O2SAT 97; BMI 27.7
[2025-08-19] MEDS: GENTAMICIN SULFATE 80 MG/2 ML VIAL 120 MG IM (07:56)
[2025-08-19] MEDS: LIDOCAINE 2% JELLY 20 ML UR (08:16)
[2025-08-19] MEDS: LIDOCAINE HCL 1% 100 MG/10 ML MDV INJ (08:20)
--- NOTE | 2025-08-19 08:34 | P.URON_ITS ---
Urology Surgery Operative Note Operative Note Procedure Date: 08/19/25 Time Out Performed: yes Pre-op Diagnosis: Elevated PSA and prostate lesion by MRI Post-op Diagnosis: same as pre-op Procedures performed: Transrectal MRI fusion prostate biopsies Anesthesia: local and other (Periprosthetic block) Primary Surgeon: Kevin Perry Complications: None Estimated blood loss (mL): 5 Findings: Hypoechoic area mid right gland Specimens: 1. 5 dedicated biopsies from the area of interest sent separately. 2. Mapped out biopsies 6 from the left and 6 from the right. Drains: None Indications for Procedures: This gentleman has an elevated PSA up to 4.7 and a PI-RADS 4 lesion on his prostate MRI at the right mid aspect. He now presents for MRI fusion transrectal prostate ultrasound and biopsies. He has signed an informed consent after risks were explained. Some of these risks include bleeding, infection, anesthesia and urosepsis to name a few. Detailed description of Procedure: The patient was kept on the [facility] bed and brought into the operating room. He was rotated into the left lateral decubitus position. Timeout was done by all parties in the room. We all agreed upon the patient's identification and the planned procedures for this patient. We started by swabbing the rectum multiple times with Betadine soaked sponges. We then passed 2% lidocaine gel per rectum. The Beltran go ultrasound was passed per rectum. Segmentation was done so as diffuse the MRI images onto the live ultrasound. We then did a 1% plain lidocaine periprosthetic block in the usual fashion. I then identified the area of interest and from this area took 5 separate biopsies. These were all sent in a container labeled area of interest. I then did mapped out biopsies first from the left side starting at the base and going towards the apex. 6 samples were sent. A similar maneuver was done on the right side. At the end of the procedure we had 17 satisfactory cores. The probe was removed. He was then transferred to PACU and discharged to home in good condition.
== END 2025-08-19 08:42 | disposition home or self-care (01) ==
LOC: SURGOUT 07:35
PROVIDERS: PCP Family Medicine; Visit Provider Urology
PROC: (CPT 55700; principal; 2025-08-19 08:25)
DX: N42.9 Disorder of prostate, unspecified (principal); R97.20 Elevated prostate specific antigen [PSA]; I10 Essential (primary) hypertension; N40.0 Benign prostatic hyperplasia without lower urinary tract symptoms; E78.5 Hyperlipidemia, unspecified
CPT/HCPCS: 55700; J1580